=== PATIENT | female | born 1965 | race African-American/Black ===

== ENCOUNTER 2019-05-31 15:42 | Inpatient (IN) | payer OTHER ==
[~2019-05-31] VITALS: Ht 157.5 cm; Wt 77.1 kg
[2019-05-31 15:54] VITALS: Ht 157.5 cm; Wt 77.1 kg
--- NOTE | 2019-05-31 15:59 | NUR ---
EKG IN PROGRESS. DR PERDUE AT BEDSIDE FOR MSE
[2019-05-31 16:36] LABS: BASOPHIL % 0.2 % (0-2); PLATELET COUNT 208 x10^3mcL (130-400); RED CELL DISTRIBUTION WIDTH 13.3 % (11.5-14.5)
[2019-05-31 16:50] LABS: CALCIUM 8.3 mg/dL (8.5-10.1); CARBON DIOXIDE 26.1 mmol/L (21-32); CHLORIDE SERUM 107 mmol/L (98-107); GFR1 > 60 mL/min; GLUCOSE SERUM 175 mg/dL (74-106); POTASSIUM SERUM 3.2 mmol/L (3.5-5.1); SODIUM SERUM 142 mmol/L (136-145)
[2019-05-31 16:59] LABS: ALKALINE PHOSPHATASE 113 U/L (46-116); ALT/SGPT 15 U/L (14-59); AST/SGOT 9 U/L (15-37); BILIRUBIN TOTAL 0.34 mg/dL (0.20-1.00)
[2019-05-31 17:00] LABS: ALBUMIN 3.3 g/dL (3.4-5.0)
--- NOTE | 2019-05-31 17:19 | NUR ---
PT BIB [facility] FOR SOB AND CHEST PAIN. PER MEDIC CIW STAFF REPORTED PT TRIPODING IN RESPIRATORY DISTRESS HOWEVER UPON ARRIVAL NO RESPIRATORY DISTRESS NOTED. PT COMPLAINING OF CHEST PAIN 6/10 WITH MINIMAL RELIEF WITH MEDICATION GIVEN PRIOR TO ARRIVAL TO ED NOTED IN PREHOSPITAL CARE. PT GOWNED PLACED ON FULL CM. PT IN POSITION OF COMFORT. MSE COMPLETED BY DR. PERDUE. CIW GUARDS AT BEDSIDE. PT HANDCUFFED IN ALL FOUR EXTREMITIES.
--- NOTE | 2019-05-31 17:30 | NUR ---
BREATHING TX IN PROGRESS
[2019-05-31] MEDS ORDERED: DILANTIN100 MG PO (17:42)
[2019-05-31] MEDS ORDERED: LISINOPRIL2.5 MG (17:42)
[2019-05-31] MEDS ORDERED: ALBUTEROL0.63 MG/3 (17:43)
[2019-05-31 18:03] VITALS: BP 123/72
--- NOTE | 2019-05-31 18:38 | NUR ---
PT IN NO DISTRESS MEDICATED PER MD ORDERS SEE EMAR.
[2019-05-31 18:41] LABS: CHOLESTEROL/HDL RATIO 3.8
--- NOTE | 2019-05-31 18:43 | NUR ---
REPORT GIVEN TO BETSY IN TELE UNIT.
--- NOTE | 2019-05-31 18:58 | NUR ---
PT HUNGRY GIVEN SANDWICH AND MILK. PT TRANSPORTED TO TELE FLOOR IN NO DISTRESS.
--- NOTE | 2019-05-31 18:59 | NUR ---
RECEIVED PT VIA GURNEY FROM E/D, ACCOMPANIED BY TRANSPORTER AND 2 [facility] GUARDS. PT A/A/O X 4, CALM, COOPERATIVE; WEARS GLASSES (W/ PT). AMBULATORY W/ SLOW, UNSTEADY GAIT; USES WALKER @ [facility]; FELL 05/31/19; FALL RISK PROTOCOL IN PLACE. ON TELE # 17, ST, HR 108, C/O CONSTANT, NON-RADIATING, L-SIDED STABBING C/P 6/10 THAT IS EXACERBATED BY DEEP INSPIRATION, MILDLY RELIEVED BY PAIN MEDICATIONS. SCD BY BEDSIDE. BUL DIM, BLL CLEAR, CHEST RISING EVENLY, R/A, 97%, NO ACUTE RESPIRATORY DISTRESS NOTED. ABD SOFT, ROUND, NON-TENDER, NORMOACTIVE BOWEL SOUNDS X 4 QUADS, LAST BM 05/31/19, DIARRHEA. NOTED HEALED MIDLINE ABD SCAR. IV SITE LH 24G, CDI. ORIENTED PT TO ROOM, BED CONTROLS, CALL LIGHT SYSTEM. SIDE RAILS UP X 2, BED IN LOW POSITION. WILL ENDORSE TO RILEY SORENSON RN.
[2019-05-31 19:34] VITALS: BP 102/62
[2019-05-31 20:46] VITALS: BP 112/70
--- NOTE | 2019-05-31 22:30 | NUR ---
PT RESTING WITH NO SIGNS OF DISTRESS NOTED AT THIS TIME, PT SHOWING NO SIGNS OF PAIN OR RESPIRATORY DISTRESS. PT SUCTIONED, AND REPOSITIONSED, ALL NEEDS ATTENDED TO, SAFETY PRECAUTIONS IN PLACE, WILL CONTINUE TO MONITOR
--- NOTE | 2019-05-31 23:30 | NUR ---
PT RESTING IN BED WITH NO ACUTE DISTRESS NOTED AT THIS TIME, PT DENIES CHEST PAIN OR PRESSURE AT THIS TIME, PT REQUESTING JUICE AND CRACKERS, ALL PT NEEDS ATTENDED TO, SAFETY PRECAUTIONS IN PLACE, FOREST FIRE OFFICER AT BEDSIDE, WILL CONTINUE TO MONITOR
--- NOTE | 2019-06-01 01:00 | NUR ---
PT RESTING, DENIES CP OR PRESSURE, NO SOB NOTED, ALL NEEDS ATTENDED TO, SAFETY PRECAUTIONS IN PLACE, HU CONTINUE TO MONITOR
[2019-06-01 05:44] VITALS: BP 136/74
[2019-06-01 06:30] LABS: PLATELET COUNT 214 x10^3mcL (130-400); RED CELL DISTRIBUTION WIDTH 13.1 % (11.5-14.5)
[2019-06-01 06:41] LABS: BASOPHIL % 0 % (0-2)
[2019-06-01 06:44] LABS: CALCIUM 8.8 mg/dL (8.5-10.1); CARBON DIOXIDE 22.8 mmol/L (21-32); CHLORIDE SERUM 107 mmol/L (98-107); CREATININE SERUM 0.9 mg/dL (0.6-1.0); GFR1 > 60 mL/min; GLUCOSE SERUM 176 mg/dL (74-106); POTASSIUM SERUM 4.4 mmol/L (3.5-5.1); SODIUM SERUM 141 mmol/L (136-145)
--- NOTE | 2019-06-01 06:52 | NUR ---
PT RESTED COMFORTABLY IN BED THROUGH THE NIGHT WITH NO ACUTE DISTRESS NOTED, PT COMPLAINED OF A MINOR COON THAT WAS RELIEVED WITH PRN ADMINISTRATION OF TYLENOL. PT DENIED CHEST PAIN THROUGH THE SHIFT, ALL PT NEEDS ATTENDED TO WILL CONTINUE TO MONITOR AND ENDORSE CARE
--- NOTE | 2019-06-01 07:25 | NUR ---
RECEIVED PT. IN BED A/A/O X3. NO SOB, NO N/V NOTED. PT. DENIES ANY PAIN AT THIS TIME. CIW OFFICER X1 AT BEDSIDE. IV SITE NOTED TO R FA. BED IN LOW POS., CALL LIGHT WITHIN REACH. SIDE RAILS UP X3.
[2019-06-01 09:15] VITALS: BP 139/83
--- NOTE | 2019-06-01 09:53 | NUR ---
PT. IS BEING SEEN BY DR. DAVID AT THIS TIME.
[2019-06-01 10:56] LABS: AMPHETAMINE QUAL UR NONE DETECTED (See below)
[2019-06-01 11:01] LABS: UA SPECIFIC GRAVITY <1.005 (1.005-1.035)
[2019-06-01 11:04] LABS: microscopic required? YES
[2019-06-01 11:05] LABS: urine erythrocyte NEGATIVE (NEGATIVE)
[2019-06-01 13:13] VITALS: BP 138/80
[2019-06-01 17:10] VITALS: BP 143/71
--- NOTE | 2019-06-01 19:30 | NUR ---
REMAINS IN STABLE CONDITION AT THIS TIME. WILL CONTINUE TO MONITOR. DENIES ANY CHEST PAIN THROUGHOUT THE ENTIRE SHIFT.
--- NOTE | 2019-06-01 20:22 | NUR ---
Awake and verbally responsive. No respiratory distress noted on room air. Denies pain at this time. Denies n/v. Will cont.to monitor.
[2019-06-01 21:04] VITALS: BP 140/72
--- NOTE | 2019-06-02 04:40 | NUR ---
Afebrile. No significant change in condition noted. Denies pain. For lloyd today.
[2019-06-02 05:10] VITALS: BP 139/95
--- NOTE | 2019-06-02 07:40 | NUR ---
RECEIVED PT FROM DECORATING SUPERVISOR ALLYSON. REYNALDO. TELE#17. DENIES CHEST PAIN/PRESSURE. RESPIRATIONS EQUAL AND UNLABORED ON RA. DENIES SOB. PT DENIES ANY PAIN AT THIS TIME. PT INFORMED STRESS TEST IS TO BE DONE TODAY AROUND 2:30PM. PT VERBALIZED UNDERSTANDING. EXPLAINED TO PT TO AVOID DRINKING AND COFFEE OR CAFFINATED BEVERAGES. PT VERBALIZED UNDERSTANDING. IV TO RFA SALINE LOCKED. NO REDNESS OR SWELLING NOTED. WILL CONTINUE TO MONITOR. CALL LIGHT IN REACH. BED IN LOWEST POSITION.
--- NOTE | 2019-06-02 09:27 | NUR ---
PT IN BED RESTING. PT REFUSING TO HAVE STRESS TEST DONE. PT STATES "THE NURSE TOLD ME THE TEST WAS GOING TO MAKE ME SICK. I DONT WANT IT DONE. I WANT TO GO BACK TO THE [facility]." EXPLAINED TO PT THE REASON FOR THE TEST. EXPLAINED TO PT SHE WILL BE MONITORED THE WHOLE TIME. PT STILL REFUSING. PT STATES "JUST TELL THE DOCTOR. I WANT TO GO BACK TO THE [facility]. I DONT WANT TO BE HERE ANYMORE." PAGED DR. TO TO INFORM HIM PT REFUSING STRESS TEST. AWAITING CALL BACK. WILL CONTINUE TO MONITOR. CALL LIGHT IN REACH. BED IN LOWEST POSITION. GUARD AT BEDSIDE.
[2019-06-02 09:35] VITALS: BP 147/80
--- NOTE | 2019-06-02 10:02 | NUR ---
PT SITTING UP IN BED. NO ACUTE RESP DISTRESS NOTED ON RA. HUSAM BENITO FROM RADIOLOGY SPOKE WITH PT. PT STATES "I AGREED TO HAVE THE TEST DONE." DR. DAVID MADE AWARE. PT GIVEN PO MEDS. TOLERATED WELL. IV ANTIBIOTICS GIVEN TO LFA. NO REDNESS OR SWELLING NOTED. WILL CONTINUE TO MONITOR. CALL LIGHT IN REACH. BED IN LOWEST
[2019-06-02 13:25] VITALS: BP 136/84
--- NOTE | 2019-06-02 13:25 | NUR ---
PT IN BED RESTING. GIVEN IV MEDICATION TOLERATED WELL. PT DENIES ANY PAIN AT THIS TIME. HUSAM RADIOLOGIST AT BEDSIDE TAKING PT DOWN FOR STRESS TEST.
--- NOTE | 2019-06-02 16:02 | NUR ---
RECEIVED PT BACK FROM RADIOLOGY FOR STRESS TEST. PT C/O COON. ASKED PT IF TYLENOL HELPED WITH COON. PT STATES "NO IT TOOK TOO LONG TO WORK. THE OTHER PILL I GOT YESTERDAY WAS BETTER." MEDICATED PER EMAR. TELE#17 PLACED BACK ON PT. GUARD AT BEDSIDE. WILL CONTINUE TO MONITOR. CALL LIGHT IN REACH. BED IN LOWEST POSITION.
[2019-06-02 16:30] VITALS: BP 156/94
[2019-06-02 17:22] VITALS: BP 156/94
--- NOTE | 2019-06-02 17:30 | NUR ---
PT ASKING TO GO BACK TO [facility]. SPOKE WITH DR. TO MADE AWARE OF STRESS TEST RESULTS. PER DR. TO PT CLEARED FOR DISCHARGE. SPOKE WITH DR. DAVID UPDATED PT HAS BEEN CLEAR BY DR. TO. PER DR. DAVDI OKAY TO D/C BACK TO [facility]. PT SIGNED DISCHARGE PAPERWORK. PACKET GIVEN TO GUARD. IV TO RFA REMOVED CATHETER INTACT. NO REDNESS OR SWELLING NOTED. TELE#17 RETURNED TO BOTANY TEACHER JEFF. WILL CONTINUE TO MONITOR. CALL LIGHT IN REACH. BED IN LOWEST POSITION.
== END 2019-06-02 19:12 | disposition other institution (70) | DRG 189 ==
LOC: ED 15:42 → DU 17:40
PROVIDERS: ADMIT Internal Medicine
DX: J96.20 Acute and chronic respiratory failure, unspecified whether with hypoxia or hypercapnia (principal); J44.1 Chronic obstructive pulmonary disease with (acute) exacerbation; J44.0 Chronic obstructive pulmonary disease with (acute) lower respiratory infection; I11.0 Hypertensive heart disease with heart failure; I50.9 Heart failure, unspecified; J20.9 Acute bronchitis, unspecified; E66.01 Morbid (severe) obesity due to excess calories; G47.33 Obstructive sleep apnea (adult) (pediatric); E87.6 Hypokalemia; I25.10 Atherosclerotic heart disease of native coronary artery without angina pectoris; Z68.31 Body mass index [BMI] 31.0-31.9, adult; Z88.0 Allergy status to penicillin; Z79.899 Other long term (current) drug therapy
CPT/HCPCS: 83880; 85378; A9500; G0378; J1644; J1956; J2785; J2920; J7613; J7620; J7644; Q0092